=== PATIENT | male | born 1950 | race Caucasian/White ===

== ENCOUNTER 2017-11-12 00:11 | Observation (INO) | payer MEDICARE, BC ==
[2017-11-12] MEDS ORDERED: Sodium Chloride 0.9% 10 ML Syringe FLUSH PRN (00:14)
[2017-11-12] MEDS ORDERED: Aspirin 81 MG Tab.Chew PO ONE (00:18)
--- NOTE | 2017-11-12 00:18 | EDM.PDOC ---
ED HPI GENERAL MEDICAL PROBLEM - General Chief Complaint: Chest Pain Stated Complaint: right sided CP Time Seen by Provider: 11/12/17 01:33 Source of Information: Reports: Patient History Limitations: Reports: No Limitations - History of Present Illness INITIAL COMMENTS - FREE TEXT/NARRATIVE: Patient is a 67-year-old known gentleman with history of kidney disease states that around 10:30 he started having chest pain radiating to the right and down to his right quadrant and around the back and I will what was called patient was picked up and brought over Onset: Sudden Duration: Hour(s): Location: Reports: Chest Quality: Reports: Pressure Severity: Moderate Improves with: Reports: None Worsens with: Reports: None Context: Reports: Other (Chest pain) Associated Symptoms: Reports: No Other Symptoms Right Chest Pain Score (Numeric/FACES): 3 - Related Data Allergies Allergy/AdvReac Type Severity Reaction Status Date / Time antihistimines Allergy Other Uncoded 11/12/17 00:14 Home Meds: Home Meds Aspirin [Lo-Dose Aspirin EC] 81 mg PO DAILY 11/12/17 [History] Carvedilol [Carvedilol] 1 tab PO BID 11/12/17 [History] Diltiazem HCl [Diltiazem 24Hr Cd] 1 tab PO BEDTIME 11/12/17 [History] Folic Acid 1 tab PO DAILY 11/12/17 [History] Lactobac Cmb #3/Fos/Pantethine [Probiotic & Acidophilus] 1 tab PO DAILY [History] Methylphenidate HCl [Methylphenidate ER] 10 mg PO BID 11/12/17 [History] atorvaSTATin [Lipitor] 10 mg PO DAILY 11/12/17 [History] busPIRone HCl [Buspirone HCl] 15 mg PO TID 11/12/17 [History] hydrOXYzine Pamoate [Hydroxyzine Pamoate] 1 cap PO BEDTIME 11/12/17 [History] ED ROS GENERAL - Review of Systems Review Of Systems: See Below Constitutional: Reports: No Symptoms HEENT: Reports: No Symptoms Respiratory: Reports: No Symptoms Cardiovascular: Reports: Chest Pain Endocrine: Reports: No Symptoms GI/Abdominal: Reports: No Symptoms : Reports: Flank Pain Musculoskeletal: Reports: No Symptoms Skin: Reports: No Symptoms Neurological: Reports: No Symptoms Psychiatric: Reports: No Symptoms Hematologic/Lymphatic: Reports: No Symptoms Immunologic: Reports: No Symptoms ED EXAM, GENERAL - Physical Exam Exam: See Below Exam Limited By: No Limitations General Appearance: Alert, WD/WN, No Apparent Distress Ears: Normal External Exam, Normal Canal, Hearing Grossly Normal, Normal TMs Ear Exam: Bilateral Ear: Auricle Normal, Canal Normal, TM normal Nose: Normal Inspection, Normal Mucosa, No Blood Throat/Mouth: Normal Inspection, Normal Lips, Normal Teeth, Normal Gums, Normal Oropharynx, Normal Voice, No Airway Compromise Head: Atraumatic, Normocephalic Neck: Normal Inspection, Supple, Non-Tender, Full Range of Motion Respiratory/Chest: No Respiratory Distress, Lungs Clear, Normal Breath Sounds, No Accessory Muscle Use, Chest Non-Tender Cardiovascular: Normal Peripheral Pulses, Regular Rate, Rhythm, No Edema, No Gallop, No JVD, No Murmur, No Rub GI/Abdominal: Normal Bowel Sounds, Soft, Non-Tender, No Organomegaly, No Distention, No Abnormal Bruit, No Mass (Male) Exam: Deferred Rectal (Males) Exam: Deferred Back Exam: Decreased Range of Motion, Muscle Spasm, Vertebral Tenderness Extremities: Normal Inspection, Normal Range of Motion, Non-Tender, Normal Capillary Refill, No Pedal Edema Neurological: Alert, Oriented, CN II-XII Intact, Normal Cognition, Normal Gait, Normal Reflexes, No Motor/Sensory Deficits Psychiatric: Normal Affect, Normal Mood Skin Exam: Warm, Dry, Intact, Normal Color, No Rash EKG INTERPRETATION EKG Date: 11/12/17 Rhythm: NSR [place]: Normal P-Wave: Present QRS: Normal ST-T: Normal Course - Vital Signs Last Recorded V/S: Last Vital Signs Temp 98.4 F 11/12/17 00:44 Pulse 60 11/12/17 01:17 Resp 11 L 11/12/17 00:44 BP 175/85 H 11/12/17 01:17 Pulse Ox 100 11/12/17 00:44 - Orders/Labs/Meds Orders: Active Orders 24 hr Category Date Time Status EKG Documentation Completion [RC] ASDIRECTED Care 11/12/17 00:16 Active CXR [Chest 2V] [CR] Stat Exams 11/12/17 00:14 Taken Sodium Chloride 0.9% [Saline Flush] Med 11/12/17 00:14 Active 10 ml FLUSH ASDIRECTED PRN Saline Lock Insert [OM.PC] Stat Oth 11/12/17 00:14 Ordered Medication Orders Enoxaparin Sodium (Lovenox) 40 mg SUBCUT DAILY DAYSI Sodium Chloride (Saline Flush) 10 ml FLUSH ASDIRECTED PRN PRN Reason: Keep Vein Open Labs: Laboratory Tests 11/12/17 11/12/17 11/12/17 Range/Units 00:25 00:25 00:25 WBC 6.1 (4.0-10.2) K/uL RBC 4.74 (4.33-5.41) M/uL Hgb 15.0 (13.1-16.8) g/dL Hct 43.8 (39.0-49.0) % MCV 92.4 (84.0-98.0) fL MCH 31.6 (28.2-33.3) pg MCHC 34.2 (31.7-36.0) g/dL RDW 14.5 H (11.2-14.1) % Plt Count 215 (150-350) K/uL Neut % (Auto) 55.3 (45.0-80.0) % Lymph % (Auto) 27.0 (10.0-50.0) % [place] % (Auto) 10.3 (2.0-14.0) % Eos % (Auto) 5.9 H (0.0-5.0) % Baso % (Auto) 1.5 (0.0-2.0) % Neut # (Auto) 3.39 (1.40-7.00) K/uL Lymph # (Auto) 1.65 (0.50-3.50) K/uL [place] # (Auto) 0.63 (0.00-1.00) K/uL Eos # (Auto) 0.36 (0.00-0.50) K/uL Baso # (Auto) 0.09 (0.00-0.20) K/uL Sodium 139 (136-145) mmol/L Potassium 4.0 (3.5-5.1) mmol/L Chloride 102 (98-107) mmol/L Carbon Dioxide 27.0 (21.0-32.0) mmol/L BUN 23 H (7-18) mg/dL Creatinine 1.54 H (0.51-1.17) mg/dL Est Cr Clr Drug Dosing 47.30 mL/min Estimated GFR (MDRD) 45 mL/min Glucose 111 H (74-106) mg/dL Calcium 8.6 (8.5-10.1) mg/dL Troponin I 0.001 (0.000-0.056) ng/mL Meds: Medications Generic Name Dose Route Start Last Admin Trade Name Freq PRN Reason Stop Dose Admin Enoxaparin Sodium 40 mg 11/12/17 08:00 Lovenox SUBCUT DAILY DAYSI Sodium Chloride 10 ml 11/12/17 00:14 Saline Flush FLUSH ASDIRECTED PRN Keep Vein Open Discontinued Medications Generic Name Dose Route Start Last Admin Trade Name Freq PRN Reason Stop Dose Admin Aspirin 324 mg 11/12/17 00:18 11/12/17 00:34 Aspirin PO 11/12/17 00:19 324 mg ONETIME ONE Administration Labetalol HCl 100 mg 11/12/17 01:08 11/12/17 01:17 Normodyne PO 11/12/17 01:09 100 mg ONETIME ONE Administration Metoprolol Tartrate 5 mg 11/12/17 00:28 11/12/17 00:35 Lopressor IVPUSH 11/12/17 00:29 5 mg ONETIME ONE Administration Morphine Sulfate 1 mg 11/12/17 00:42 Morphine IVPUSH 11/12/17 00:43 ONETIME ONE Ondansetron HCl 4 mg 11/12/17 00:23 11/12/17 00:35 Zofran IVPUSH 11/12/17 00:24 4 mg ONETIME ONE Administration Departure - Departure Time of Disposition: 01:41 Disposition: Refer to Observation Condition: Good Clinical Impression: Chest pain at rest - Problem List & Annotations (1) Chest pain at rest SNOMED Code(s): 0885621 Code(s): R07.9 - CHEST PAIN, UNSPECIFIED Status: Acute Current Visit: Yes - Problem List Review Problem List Initiated/Reviewed/Updated: Yes - My Orders Last 24 Hours: My Active Orders 11/12/17 00:14 CXR [Chest 2V] [CR] Stat Sodium Chloride 0.9% [Saline Flush] 10 ml FLUSH ASDIRECTED PRN Saline Lock Insert [OM.PC] Stat 11/12/17 00:16 EKG Documentation Completion [RC] ASDIRECTED - Assessment/Plan Last 24 Hours: My Active Orders 11/12/17 00:14 CXR [Chest 2V] [CR] Stat Sodium Chloride 0.9% [Saline Flush] 10 ml FLUSH ASDIRECTED PRN Saline Lock Insert [OM.PC] Stat 11/12/17 00:16 EKG Documentation Completion [RC] ASDIRECTED Plan: Plan is to admit for observation recheck troponins in the morning repeat EKG if everything is normal we'll send home patient will need a prescription for labetalol 100 mg by mouth 3 times a day for hypertension
[2017-11-12] MEDS ORDERED: Ondansetron 4 MG/2 ML SDV IVPUSH ONE (00:23)
[2017-11-12] MEDS ORDERED: Metoprolol Tartrate 5 MG/5 ML SDV IVPUSH ONE (00:28)
[2017-11-12] MEDS ORDERED: Morphine 2 MG/ML Syringe IVPUSH ONE (00:42)
[2017-11-12] MEDS ORDERED: Labetalol 100 MG Tab PO ONE (01:08)
[2017-11-12] MEDS ORDERED: Ondansetron 4 MG/2 ML SDV IVPUSH STA (06:24)
[2017-11-12] MEDS ORDERED: Carvedilol 6.25 MG Tab PO SCH (08:00)
[2017-11-12] MEDS ORDERED: METHYLPHENIDATE HCL 10 MG PO SCH (08:00)
[2017-11-12] MEDS ORDERED: Folic Acid 1 MG Tab PO SCH (08:00)
[2017-11-12] MEDS ORDERED: Diltiazem 120 MG Cap.CD PO SCH (08:00)
[2017-11-12] MEDS ORDERED: Aspirin 81 MG Tab.EC PO SCH (08:00)
[2017-11-12] MEDS ORDERED: Enoxaparin 40 MG/0.4 ML Syringe SUBCUT SCH (08:00)
[2017-11-12] MEDS ORDERED: Lactobacillus Rhamnosus GG (Probiotic) Cap PO SCH (08:00)
[2017-11-12] MEDS ORDERED: atorvaSTATin 10 MG Tab PO SCH (08:00)
[2017-11-12] MEDS: busPIRone 15 MG Tab PO SCH ×2 (08:12→11:12)
--- NOTE | 2017-11-12 12:22 | PCM.DCSUM1 ---
Discharge Summary - Hospital Course Brief History: Patient admitted to observation overnight for complaint of chest and abdominal pain. - Discharge Data Discharge Date: 11/12/17 Discharge Disposition: Home, Self-Care 01 Condition: Good - Discharge Diagnosis/Problem(s) (1) Chest pain at rest SNOMED Code(s): 6678144 ICD Code: R07.9 - CHEST PAIN, UNSPECIFIED Status: Acute Priority: High Current Visit: Yes Onset Date: 11/11/17 Problem Details: Sudden onset right sided chest pain, radiating to RLQ and around right back. Unremarkable cardiac workup. Improved with passing gas. Patient also has history of GERD. Suspect GI in nature at this time. Pain-free at time of discharge. - Patient Summary/Data Complications: None Hospital Course: Patient remained stable. Became pain-free after passing some gas. Unremarkable Troponins and EKGs/chest xray. Some elevations in BP noted periodically, but overall vital signs stable. - Patient Instructions Diet: Heart Healthy Diet Activity: As Tolerated Driving: May Drive Today Showering/Bathing: May Shower Notify Provider of: Increased Pain Other/Special Instructions: Call your primary provider and tell them that you were admitted overnight for evaluation of chest pain. Consider having stress testing performed to more fully rule out the possibility of cardiac involvement. Follow up otherwise as needed if pain redevelops or you start having additional problems. Also, review your blood pressure trends and see if any adjustments in medication are needed. - Discharge Plan Home Medications: Home Meds Aspirin [Lo-Dose Aspirin EC] 81 mg PO DAILY 11/12/17 [History] Carvedilol 1 tab PO BID 11/12/17 [History] Diltiazem HCl [Diltiazem 24Hr Cd] 1 tab PO BEDTIME 11/12/17 [History] Folic Acid 1 tab PO DAILY 11/12/17 [History] Lactobac Cmb #3/Fos/Pantethine [Probiotic & Acidophilus] 1 tab PO DAILY [History] Methylphenidate HCl [Methylphenidate ER] 10 mg PO BID 11/12/17 [History] atorvaSTATin [Lipitor] 10 mg PO DAILY 11/12/17 [History] busPIRone HCl [Buspirone HCl] 15 mg PO TID 11/12/17 [History] hydrOXYzine Pamoate [Hydroxyzine Pamoate] 1 cap PO BEDTIME 11/12/17 [History] Patient Handouts: Chest Pain Observation Forms: ED Department Discharge Referrals: PCP,Unknown [Primary Care Provider] - - Discharge Summary/Plan Comment DC Time >30 min.: Yes - General Info Date of Service: 11/12/17 Admission Dx/Problem (Free Text: Admitted for observation, serial EKGs/Troponins for chest pain complaint. Subjective Update: Feels normal. Pain-free at this time. Functional Status: Reports: Pain Controlled, Tolerating Diet, Ambulating, Urinating. Denies: New Symptoms - Review of Systems General: Reports: No Symptoms HEENT: Reports: Glasses Pulmonary: Reports: No Symptoms Cardiovascular: Reports: No Symptoms Gastrointestinal: Reports: No Symptoms Genitourinary: Reports: No Symptoms Musculoskeletal: Reports: No Symptoms (no acute changes) Skin: Reports: No Symptoms Neurological: Reports: No Symptoms Psychiatric: Reports: No Symptoms - Patient Data Vitals - Most Recent: Last Vital Signs Temp 36.6 C 11/12/17 07:22 Pulse 64 11/12/17 07:22 Resp 15 11/12/17 07:22 BP 144/78 H 11/12/17 08:11 Pulse Ox 96 11/12/17 07:22 Weight - Most Recent: 95.254 kg I&O - Last 24 hours: Intake & Output 11/11/17 11/12/17 11/12/17 22:59 06:59 14:59 Intake Total 550 Balance 550 Lab Results - Last 24 hrs: Laboratory Results - last 24 hr 11/12/17 11/12/17 11/12/17 Range/Units 07:30 07:30 07:30 WBC 7.8 (4.0-10.2) K/uL RBC 4.86 (4.33-5.41) M/uL Hgb 15.5 (13.1-16.8) g/dL Hct 44.7 (39.0-49.0) % MCV 92.0 (84.0-98.0) fL MCH 31.9 (28.2-33.3) pg MCHC 34.7 (31.7-36.0) g/dL RDW 14.5 H (11.2-14.1) % Plt Count 215 (150-350) K/uL Neut % (Auto) 65.3 (45.0-80.0) % Lymph % (Auto) 21.8 (10.0-50.0) % [place] % (Auto) 9.1 (2.0-14.0) % Eos % (Auto) 3.2 (0.0-5.0) % Baso % (Auto) 0.6 (0.0-2.0) % Neut # (Auto) 5.10 (1.40-7.00) K/uL Lymph # (Auto) 1.70 (0.50-3.50) K/uL [place] # (Auto) 0.71 (0.00-1.00) K/uL Eos # (Auto) 0.25 (0.00-0.50) K/uL Baso # (Auto) 0.05 (0.00-0.20) K/uL Sodium 139 (136-145) mmol/L Potassium 3.7 (3.5-5.1) mmol/L Chloride 103 (98-107) mmol/L Carbon Dioxide 25.6 (21.0-32.0) mmol/L BUN 17 (7-18) mg/dL Creatinine 1.38 H (0.51-1.17) mg/dL Est Cr Clr Drug Dosing 53.10 mL/min Estimated GFR (MDRD) 51 mL/min Glucose 119 H (74-106) mg/dL Calcium 8.6 (8.5-10.1) mg/dL Troponin I 0.003 (0.000-0.056) ng/mL Med Orders - Current: Current Medications Aspirin (Halfprin) 81 mg PO DAILY [facility] Last Admin: 11/12/17 08:11 Dose: 81 mg Atorvastatin Calcium (Lipitor) 10 mg PO DAILY [facility] Last Admin: 11/12/17 08:12 Dose: 10 mg Buspirone HCl (Buspar) 15 mg PO TID [facility] Last Admin: 11/12/17 11:12 Dose: 15 mg Carvedilol (Coreg) 6.25 mg PO BID [facility] Last Admin: 11/12/17 08:11 Dose: 6.25 mg Diltiazem HCl (Cardizem Cd) 240 mg PO DAILY [facility] Last Admin: 11/12/17 08:10 Dose: Not Given Enoxaparin Sodium (Lovenox) 40 mg SUBCUT DAILY [facility] Last Admin: 11/12/17 08:12 Dose: 40 mg Folic Acid (Folic Acid) 1 mg PO DAILY [facility] Last Admin: 11/12/17 08:11 Dose: 1 mg Hydroxyzine Pamoate (Vistaril) 25 mg PO BEDTIME [facility] Lactobacillus Rhamnosus (Culturelle) 1 cap PO DAILY [facility] Last Admin: 11/12/17 08:12 Dose: 1 cap Non-Formulary Medication (Methylphenidate Hcl [Methylphenidate Er]) 10 mg PO BID [facility] Sodium Chloride (Saline Flush) 10 ml FLUSH ASDIRECTED PRN PRN Reason: Keep Vein Open Last Admin: 11/12/17 08:12 Dose: 10 ml Discontinued Medications Aspirin (Aspirin) 324 mg PO ONETIME ONE Stop: 11/12/17 00:19 Last Admin: 11/12/17 00:34 Dose: 324 mg Labetalol HCl (Normodyne) 100 mg PO ONETIME ONE Stop: 11/12/17 01:09 Last Admin: 11/12/17 01:17 Dose: 100 mg Metoprolol Tartrate (Lopressor) 5 mg IVPUSH ONETIME ONE Stop: 11/12/17 00:29 Last Admin: 11/12/17 00:35 Dose: 5 mg Morphine Sulfate (Morphine) 1 mg IVPUSH ONETIME ONE Stop: 11/12/17 00:43 Last Admin: 11/12/17 02:53 Dose: Not Given Ondansetron HCl (Zofran) 4 mg IVPUSH ONETIME ONE Stop: 11/12/17 00:24 Last Admin: 11/12/17 00:35 Dose: 4 mg Ondansetron HCl (Zofran) 4 mg IVPUSH ONETIME STA Stop: 11/12/17 06:25 Last Admin: 11/12/17 07:06 Dose: 4 mg - Exam General: Reports: Alert, Oriented, Cooperative, No Acute Distress HEENT: Reports: Pupils Equal, Pupils Reactive, Mucous Membr. Moist/[place] Neck: Reports: Supple Lungs: Reports: Clear to Auscultation, Normal Respiratory Effort GI/Abdominal Exam: Normal Bowel Sounds, Soft, Non-Tender, No Distention, No Mass (Male) Exam: Deferred Rectal (Males) Exam: Deferred Back Exam: Reports: Normal Inspection Extremities: Normal Inspection, Normal Range of Motion, Non-Tender, Normal Capillary Refill Skin: Reports: Warm, Dry, Intact Neurological: Reports: No New Focal Deficit Psy/Mental Status: Reports: Alert, Normal Affect, Normal Mood EKG INTERPRETATION EKG Date: 11/12/17 Time: 07:57 Rhythm: NSR Rate (Beats/Min): 60 [place]: Normal P-Wave: Present QRS: Normal ST-T: Normal QT: Prolonged Comparison: Change From Previous EKG (today MI interval is longer, 244ms instead of 204ms. Otherwise no change.) *Q Meaningful Use (DIS) - VTE *Q VTE Criteria *Q: - Stroke *Q Stroke Criteria *Q: - AMI *Q AMI Criteria *Q:
[2017-11-12] MEDS ORDERED: hydrOXYzine Pamoate 25 MG Cap PO SCH (20:00)
== END 2017-11-12 12:55 | disposition home or self-care (01) ==
LOC: LL.ED 00:11 → LL.MS 01:33
PROVIDERS: ADMIT Family Medicine; ATTEND Emergency Medicine
DX: R07.9 Chest pain, unspecified (principal); K21.9 Gastro-esophageal reflux disease without esophagitis; I10 Essential (primary) hypertension; Z79.82 Long term (current) use of aspirin; Z79.899 Other long term (current) drug therapy; Z88.8 Allergy status to other drugs, medicaments and biological substances
CPT/HCPCS: 36415; 71046; 80048; 84484; 85025; 93005; 96372; 96374; 96375; 96376; 99285; A9270; G0378; J1650; J2405; J7050; 99234; J3490

== ENCOUNTER 2018-01-06 17:24 | Emergency (ER) | payer MEDICARE, BC ==
[2018-01-06 18:07] LABS: CHLORIDE,CL 104 mmol/L (98-107); SODIUM,NA 140 mmol/L (136-145)
--- NOTE | 2018-01-06 18:21 | EDM.PDOC ---
ED HPI GENERAL MEDICAL PROBLEM - General Chief Complaint: Abdominal Pain Stated Complaint: 'knot in belly' Time Seen by Provider: 01/06/18 17:24 Source of Information: Reports: Patient History Limitations: Reports: No Limitations - History of Present Illness INITIAL COMMENTS - FREE TEXT/NARRATIVE: Patient is a 67-year-old well known to myself seeing today with chief complaint of epigastric gastric discomfort he states that he had lunch that when outside chipped some ice wasn't feeling too good went inside to the nap and then woke up with epigastric pain radiating to the side this happened to him about 3 or 4 times recently and at this point he decided to come in for evaluation Onset: Today, Sudden Duration: Hour(s): Location: Reports: Abdomen Quality: Reports: Ache, Pressure Improves with: Reports: Rest Worsens with: Reports: None Abdominal Pain Score (Numeric/FACES): 5 - Related Data Allergies Allergy/AdvReac Type Severity Reaction Status Date / Time antihistimines Allergy Other Uncoded 01/06/18 17:26 Home Meds: Home Meds Aspirin [Lo-Dose Aspirin EC] 81 mg PO DAILY 11/12/17 [History] Carvedilol 1 tab PO BID 11/12/17 [History] Diltiazem HCl [Diltiazem 24Hr Cd] 1 tab PO BEDTIME 11/12/17 [History] Folic Acid 1 tab PO DAILY 11/12/17 [History] Lactobac Cmb #3/Fos/Pantethine [Probiotic & Acidophilus] 1 tab PO DAILY [History] Methylphenidate HCl [Methylphenidate ER] 10 mg PO BID PRN 11/12/17 [History] atorvaSTATin [Lipitor] 10 mg PO DAILY 11/12/17 [History] busPIRone HCl [Buspirone HCl] 15 mg PO TID 11/12/17 [History] hydrOXYzine Pamoate [Hydroxyzine Pamoate] 1 cap PO BEDTIME 11/12/17 [History] Ubidecarenone/Vitamin E [Co Q-10 50 MG Softgel] 1 caplet PO DAILY 01/06/18 [ History] Past Medical History HEENT History: Reports: Allergic Rhinitis, Cataract, Glaucoma, Impaired Vision, Sinusitis Cardiovascular History: Reports: High Cholesterol, Hypertension Respiratory History: Reports: Asthma Gastrointestinal History: Reports: GERD Genitourinary History: Reports: Other (See Below) Other Genitourinary History: CKD Musculoskeletal History: Reports: Arthritis, Osteoarthritis Other Musculoskeletal History: bilateral clavical fx, 6 rib fx, collapsed t7, cracked process off of c7 Neurological History: Reports: Concussion Psychiatric History: Reports: ADD, Anxiety Dermatologic History: Reports: Psoriasis - Past Surgical History HEENT Surgical History: Reports: Tonsillectomy, Other (See Below) Other HEENT Surgeries/Procedures: retnial repair GI Surgical History: Reports: Colonoscopy Male Surgical History: Reports: Vasectomy Social & Family History - Tobacco Use Smoking Status *Q: Never Smoker - Caffeine Use Caffeine Use: Reports: Coffee, Energy Drinks, Soda, Tea - Recreational Drug Use Recreational Drug Use: No ED ROS GENERAL - Review of Systems Review Of Systems: See Below Constitutional: Reports: No Symptoms HEENT: Reports: No Symptoms Respiratory: Reports: No Symptoms Cardiovascular: Reports: No Symptoms Endocrine: Reports: No Symptoms GI/Abdominal: Reports: Abdominal Pain : Reports: No Symptoms Musculoskeletal: Reports: No Symptoms Skin: Reports: No Symptoms Neurological: Reports: No Symptoms Psychiatric: Reports: No Symptoms Hematologic/Lymphatic: Reports: No Symptoms Immunologic: Reports: No Symptoms ED EXAM, GI/ABD - Physical Exam Exam: See Below Exam Limited By: No Limitations General Appearance: Alert, WD/WN, No Apparent Distress Eyes: Bilateral: Normal Appearance, EOMI Ears: Normal External Exam, Normal Canal, Hearing Grossly Normal, Normal TMs Nose: Normal Inspection, Normal Mucosa, No Blood Throat/Mouth: Normal Inspection, Normal Lips, Normal Teeth, Normal Gums, Normal Oropharynx, Normal Voice, No Airway Compromise Head: Atraumatic, Normocephalic Neck: Normal Inspection, Supple, Non-Tender, Full Range of Motion Respiratory/Chest: No Respiratory Distress, Lungs Clear, Normal Breath Sounds, No Accessory Muscle Use, Chest Non-Tender Cardiovascular: Normal Peripheral Pulses, Regular Rate, Rhythm, No Edema, No Gallop, No JVD, No Murmur, No Rub GI/Abdominal Exam: Normal Bowel Sounds, No Mass, Tender (Male) Exam: Deferred Rectal (Males) Exam: Deferred Back Exam: Normal Inspection, Full Range of Motion, NT Extremities: Normal Inspection, Normal Range of Motion, Non-Tender, Normal Capillary Refill, No Pedal Edema Neurological: Alert, Oriented, CN II-XII Intact, Normal Cognition, Normal Gait, Normal Reflexes, No Motor/Sensory Deficits Psychiatric: Normal Affect, Normal Mood Skin Exam: Warm, Dry, Intact, Normal Color, No Rash Course - Vital Signs Last Recorded V/S: Last Vital Signs Temp Pulse 65 01/06/18 21:35 Resp 18 01/06/18 21:35 BP 161/74 H 01/06/18 21:35 Pulse Ox 98 01/06/18 19:00 - Orders/Labs/Meds Orders: Active Orders 24 hr Category Date Time Status Ready for Discharge [RC] PER UNIT ROUTINE Care 01/06/18 21:34 Active Ready for Discharge [RC] PER UNIT ROUTINE Care 01/06/18 21:54 Active Abdomen 2V AP Flat Upright [CR] Stat Exams 01/06/18 17:26 Taken Abdomen Pelvis w Cont [CT] Stat Exams 01/06/18 18:30 Taken Saline Lock Insert [OM.PC] Stat Oth 01/06/18 19:13 Ordered Labs: Laboratory Tests 01/06/18 01/06/18 01/06/18 Range/Units 17:50 17:50 18:37 WBC 6.5 (4.0-10.2) K/uL RBC 4.44 (4.33-5.41) M/uL Hgb 13.9 D (13.1-16.8) g/dL Hct 41.4 (39.0-49.0) % MCV 93.2 (84.0-98.0) fL MCH 31.3 (28.2-33.3) pg MCHC 33.6 (31.7-36.0) g/dL RDW 13.6 (11.2-14.1) % Plt Count 385 H D (150-350) K/uL Neut % (Auto) 66.7 (45.0-80.0) % Lymph % (Auto) 18.6 (10.0-50.0) % [place] % (Auto) 11.5 (2.0-14.0) % Eos % (Auto) 2.6 (0.0-5.0) % Baso % (Auto) 0.6 (0.0-2.0) % Neut # (Auto) 4.34 (1.40-7.00) K/uL Lymph # (Auto) 1.21 (0.50-3.50) K/uL [place] # (Auto) 0.75 (0.00-1.00) K/uL Eos # (Auto) 0.17 (0.00-0.50) K/uL Baso # (Auto) 0.04 (0.00-0.20) K/uL Sodium 140 (136-145) mmol/L Potassium 4.4 (3.5-5.1) mmol/L Chloride 104 (98-107) mmol/L Carbon Dioxide 28.1 (21.0-32.0) mmol/L BUN 20 H (7-18) mg/dL Creatinine 1.44 H (0.51-1.17) mg/dL Est Cr Clr Drug Dosing TNP Estimated GFR (MDRD) 49 mL/min Glucose 126 H (74-106) mg/dL Calcium 8.4 L (8.5-10.1) mg/dL Specimen Type Urincc Urine Color Yellow Urine Appearance Clear Urine pH 5.5 (5.0-9.0) Ur Specific [place] <= 1.005 (1.005-1.030) Urine Protein Negative (NEGATIVE) mg/dL Urine Glucose (UA) Negative (NEGATIVE) mg/dL Urine Ketones Negative (NEGATIVE) mg/dL Urine Occult Blood Negative (NEGATIVE) Urine Nitrite Negative (NEGATIVE) Urine Bilirubin Negative (NEGATIVE) Urine Urobilinogen 0.2 (0.2-1.0) E.U./dL Ur Leukocyte Esterase Negative (NEGATIVE) Urine RBC 0-5 /HPF Urine WBC Not seen /HPF Ur Epithelial Cells Rare /LPF Urine Bacteria Rare (NONE TO FEW) /HPF Meds: Medications Discontinued Medications Generic Name Dose Route Start Last Admin Trade Name Freq PRN Reason Stop Dose Admin Hydrocodone Bitart/Acetaminophen 1 tab 01/06/18 21:53 01/06/18 22:01 [place] 325-5 Mg PO 01/06/18 21:54 1 tab ONETIME ONE Administration Sodium Chloride 1,000 mls @ 250 mls/hr 01/06/18 19:15 01/06/18 19:15 Normal Saline IV 250 mls/hr ASDIRECTED DAYSI Administration Iopamidol 100 ml 01/06/18 19:50 01/06/18 20:02 Isovue-300 (61%) IVPUSH 01/06/18 19:51 100 ml ONETIME ONE Administration Sodium Chloride 10 ml 01/06/18 19:12 Saline Flush FLUSH ASDIRECTED PRN Keep Vein Open Departure - Departure Time of Disposition: 21:31 Disposition: Home, Self-Care 01 Condition: Good Clinical Impression: Cholecystitis - Discharge Information Instructions: Acetaminophen; Hydrocodone tablets or capsules, Cholelithiasis, [id number], Cholangitis, Low-Fat Diet for Pancreatitis or Gallbladder Conditions Referrals: Gee Santana MD [Primary Care Provider] - Oscar Hdz MD [Ordering Only Provider] - Forms: ED Department Discharge Care Plan Goals: Patient will be sent home he is currently asymptomatic on a low-fat diet he is to see Dr. Hdz was his primary physician for follow-up and referral to surgeon we will send labs and CT report to primary - My Orders Last 24 Hours: My Active Orders 01/06/18 17:26 Abdomen 2V AP Flat Upright [CR] Stat 01/06/18 18:30 Abdomen Pelvis w Cont [CT] Stat 01/06/18 19:13 Saline Lock Insert [OM.PC] Stat 01/06/18 21:34 Ready for Discharge [RC] PER UNIT ROUTINE 01/06/18 21:54 Ready for Discharge [RC] PER UNIT ROUTINE - Assessment/Plan Last 24 Hours: My Active Orders 01/06/18 17:26 Abdomen 2V AP Flat Upright [CR] Stat 01/06/18 18:30 Abdomen Pelvis w Cont [CT] Stat 01/06/18 19:13 Saline Lock Insert [OM.PC] Stat 01/06/18 21:34 Ready for Discharge [RC] PER UNIT ROUTINE 01/06/18 21:54 Ready for Discharge [RC] PER UNIT ROUTINE
[2018-01-06] MEDS ORDERED: Sodium Chloride 0.9% 10 ML Syringe FLUSH PRN (19:12)
[2018-01-06] MEDS: Sodium Chloride 0.9% 1,000 ML IV SCH (19:15)
[2018-01-06] MEDS: Iopamidol 612 MG/ML 100 ML Bottle IVPUSH ONE (20:02)
[2018-01-06] MEDS: Acetaminophen/HYDROcodone 325-5 MG Tab PO ONE (22:01)
== END 2018-01-06 21:50 | disposition home or self-care (01) ==
LOC: LL.ED 17:24
DX: K81.9 Cholecystitis, unspecified (principal); E78.00 Pure hypercholesterolemia, unspecified; I12.9 Hypertensive chronic kidney disease with stage 1 through stage 4 chronic kidney disease, or unspecified chronic kidney disease; N18.9 Chronic kidney disease, unspecified; K21.9 Gastro-esophageal reflux disease without esophagitis; F41.9 Anxiety disorder, unspecified; Z79.82 Long term (current) use of aspirin; Z79.899 Other long term (current) drug therapy; Z88.8 Allergy status to other drugs, medicaments and biological substances
CPT/HCPCS: 36415; 74019; 74177; 80048; 81001; 85025; 96360; 96361; 99285; A9270-GY; J7030; Q9967

== ENCOUNTER 2019-03-07 22:04 | Emergency (ER) | payer MEDICARE, BC ==
--- NOTE | 2019-03-07 23:00 | EDM.PDOC ---
ED HPI GENERAL MEDICAL PROBLEM - General Chief Complaint: Cardiovascular Problem Stated Complaint: feeling like in afib again, 'extra heart beat' Time Seen by Provider: 03/07/19 22:10 Source of Information: Reports: Patient History Limitations: Reports: No Limitations - History of Present Illness Onset: Today Duration: Hour(s):, Constant Location: Reports: Chest Quality: Reports: Same as Previous Episode Severity: Moderate Improves with: Reports: None Worsens with: Reports: None - Related Data Allergies Allergy/AdvReac Type Severity Reaction Status Date / Time antihistimines Allergy Other Uncoded 03/07/19 22:32 Home Meds: Home Meds Aspirin [Lo-Dose Aspirin EC] 81 mg PO DAILY 11/12/17 [History] Carvedilol 1 tab PO BID 11/12/17 [History] Diltiazem HCl [Diltiazem 24Hr Cd] 1 tab PO BEDTIME 11/12/17 [History] Folic Acid 1 tab PO DAILY 11/12/17 [History] Lactobac Cmb #3/Fos/Pantethine [Probiotic & Acidophilus] 1 tab PO DAILY [History] atorvaSTATin [Lipitor] 10 mg PO DAILY 11/12/17 [History] busPIRone HCl [Buspirone HCl] 15 mg PO TID 11/12/17 [History] hydrOXYzine pamoate [Hydroxyzine Pamoate] 1 cap PO BEDTIME 11/12/17 [History] Ubidecarenone/Vitamin E [Co Q-10 50 MG Softgel] 1 caplet PO DAILY 01/06/18 [ History] Cholecalciferol (Vitamin D3) [Vitamin D3] 2,000 unit PO DAILY 03/07/19 [History] Past Medical History HEENT History: Reports: Allergic Rhinitis, Cataract, Glaucoma, Impaired Vision, Sinusitis Cardiovascular History: Reports: High Cholesterol, Hypertension Respiratory History: Reports: Asthma Gastrointestinal History: Reports: GERD Genitourinary History: Reports: Other (See Below) Other Genitourinary History: CKD Musculoskeletal History: Reports: Arthritis, Osteoarthritis Other Musculoskeletal History: bilateral clavical fx, 6 rib fx, collapsed t7, cracked process off of c7 Neurological History: Reports: Concussion Psychiatric History: Reports: ADD, Anxiety Dermatologic History: Reports: Psoriasis - Past Surgical History HEENT Surgical History: Reports: Tonsillectomy, Other (See Below) Other HEENT Surgeries/Procedures: retnial repair GI Surgical History: Reports: Colonoscopy Male Surgical History: Reports: Vasectomy Social & Family History - Caffeine Use Caffeine Use: Reports: Coffee, Energy Drinks, Soda, Tea ED ROS GENERAL - Review of Systems Review Of Systems: See Below Constitutional: Reports: No Symptoms HEENT: Reports: No Symptoms Respiratory: Reports: No Symptoms Cardiovascular: Reports: No Symptoms Endocrine: Reports: No Symptoms GI/Abdominal: Reports: No Symptoms : Reports: No Symptoms Musculoskeletal: Reports: No Symptoms Skin: Reports: No Symptoms Neurological: Reports: No Symptoms Psychiatric: Reports: No Symptoms Hematologic/Lymphatic: Reports: No Symptoms Immunologic: Reports: No Symptoms ED EXAM, GENERAL - Physical Exam Exam: See Below Exam Limited By: No Limitations General Appearance: Alert, WD/WN, No Apparent Distress Ears: Normal External Exam, Normal Canal, Hearing Grossly Normal, Normal TMs Ear Exam: Bilateral Ear: Auricle Normal, Canal Normal, TM normal Nose: Normal Inspection, Normal Mucosa, No Blood Throat/Mouth: Normal Inspection, Normal Lips, Normal Teeth, Normal Gums, Normal Oropharynx, Normal Voice, No Airway Compromise Head: Atraumatic, Normocephalic Neck: Normal Inspection, Supple, Non-Tender, Full Range of Motion Respiratory/Chest: No Respiratory Distress, Lungs Clear, Normal Breath Sounds, No Accessory Muscle Use, Chest Non-Tender Cardiovascular: Irregularly Irregular GI/Abdominal: Normal Bowel Sounds, Soft, Non-Tender, No Organomegaly, No Distention, No Abnormal Bruit, No Mass (Male) Exam: Deferred Rectal (Males) Exam: Deferred Back Exam: Normal Inspection, Full Range of Motion, NT Extremities: Normal Inspection, Normal Range of Motion, Non-Tender, Normal Capillary Refill, No Pedal Edema Neurological: Alert Psychiatric: Normal Affect, Normal Mood Skin Exam: Warm, Dry, Intact, Normal Color, No Rash Course - Orders/Labs/Meds Orders: Active Orders 24 hr Category Date Time Status EKG Documentation Completion [RC] ASDIRECTED Care 03/07/19 22:12 Active Departure - Departure Time of Disposition: 23:04 Disposition: Home, Self-Care 01 Condition: Fair Clinical Impression: Atrial fib/flutter, transient Care Plan Goals: At this time patient will be sent home continue taking medications I will refer him to Dr. fatima sr. logistics analyst [facility] cardiovascular clinic patients scored a Olman score 1 which is moderate he should be taking an aspirin a day he should call [facility] [phone] and asked for cardiology clinic referred by Dr. Santana and Dr. Fatima for Sunday or Sunday if unable to get in he should call my clinic for assistance at this time patient is Olman score 2 I explained that the risks of stroke is about 2.8-2.9 and that we should start anticoagulation patient states that he would like to wait for cardiology. - My Orders Last 24 Hours: My Active Orders 03/07/19 22:12 EKG Documentation Completion [RC] ASDIRECTED - Assessment/Plan Last 24 Hours: My Active Orders 03/07/19 22:12 EKG Documentation Completion [RC] ASDIRECTED
== END 2019-03-07 23:26 | disposition home or self-care (01) ==
LOC: LL.ED 22:04 → SUPCPDRO 22:04 → LL.ED 23:26
DX: I48.92 Unspecified atrial flutter (principal); I48.91 Unspecified atrial fibrillation; I12.9 Hypertensive chronic kidney disease with stage 1 through stage 4 chronic kidney disease, or unspecified chronic kidney disease; N18.9 Chronic kidney disease, unspecified; E78.00 Pure hypercholesterolemia, unspecified; J45.909 Unspecified asthma, uncomplicated; K21.9 Gastro-esophageal reflux disease without esophagitis; F41.9 Anxiety disorder, unspecified; Z79.82 Long term (current) use of aspirin; Z79.899 Other long term (current) drug therapy; Z88.8 Allergy status to other drugs, medicaments and biological substances
CPT/HCPCS: 93005; 99285-25

== ENCOUNTER 2020-04-09 21:48 | Emergency (ER) | payer MEDICARE, BC ==
[2020-04-09] MEDS: Tetracaine HCl/PF 0.5% 4 ML Bottle EYERT ONE (22:12)
--- NOTE | 2020-04-09 22:40 | EDM.PDOC ---
ED HPI GENERAL MEDICAL PROBLEM - General Chief Complaint: Eye Problems Stated Complaint: foreign body in eye Time Seen by Provider: 04/09/20 22:33 Source of Information: Reports: Patient, RN Notes Reviewed History Limitations: Reports: No Limitations - History of Present Illness INITIAL COMMENTS - FREE TEXT/NARRATIVE: Right eye FB sensation worsening over 5 hours after low speed grinding of aluminum. Now photophobic. No globe pain. No direct blow trauma. Hx of same without sequelae. No other complaints. Onset: Today Duration: Hour(s): (5) Right Eye Pain Score (Numeric/FACES): 1 - Related Data Allergies Allergy/AdvReac Type Severity Reaction Status Date / Time antihistimines Allergy Other Uncoded 04/09/20 21:49 Home Meds: Home Meds Folic Acid 1 tab PO DAILY 11/12/17 [History] Lactobacillus 3/Fos/Pantethine [Probiotic & Acidophilus] 1 tab PO DAILY [History] atorvaSTATin [Lipitor] 10 mg PO DAILY 11/12/17 [History] busPIRone HCl [Buspirone HCl] 15 mg PO BID 11/12/17 [History] carvediloL [Carvedilol] 0.5 tab PO BID 11/12/17 [History] dilTIAZem HCL [Diltiazem 24Hr ER (Cd)] 1 tab PO ASDIRECTED 11/12/17 [History] hydrOXYzine pamoate [Hydroxyzine Pamoate] 1 cap PO BEDTIME PRN 11/12/17 [History ] Cholecalciferol (Vitamin D3) [Vitamin D3] 2,000 unit PO DAILY 03/07/19 [History] Apixaban [Eliquis] 5 mg PO BID 04/09/20 [History] Biotin 3,000 mcg PO DAILY 04/09/20 [History] Past Medical History HEENT History: Reports: Allergic Rhinitis, Cataract, Glaucoma, Impaired Vision, Sinusitis Cardiovascular History: Reports: High Cholesterol, Hypertension Respiratory History: Reports: Asthma Gastrointestinal History: Reports: GERD Genitourinary History: Reports: Other (See Below) Other Genitourinary History: CKD Musculoskeletal History: Reports: Arthritis, Osteoarthritis Other Musculoskeletal History: bilateral clavical fx, 6 rib fx, collapsed t7, cracked process off of c7 Neurological History: Reports: Concussion Psychiatric History: Reports: ADD, Anxiety Dermatologic History: Reports: Psoriasis - Past Surgical History HEENT Surgical History: Reports: Tonsillectomy, Other (See Below) Other HEENT Surgeries/Procedures: retnial repair GI Surgical History: Reports: Colonoscopy Male Surgical History: Reports: Vasectomy Social & Family History - Tobacco Use Smoking Status *Q: Never Smoker Second Hand Smoke Exposure: No - Caffeine Use Caffeine Use: Reports: Coffee, Energy Drinks, Soda, Tea - Alcohol Use Days Per Week of Alcohol Use: 7 Number of Drinks Per Day: 1 Total Drinks Per Week: 7 - Recreational Drug Use Recreational Drug Use: No ED ROS GENERAL - Review of Systems Review Of Systems: See Below Constitutional: Reports: No Symptoms. Denies: Fever HEENT: Reports: Eye Pain. Denies: Ear Pain, Nose Pain, Throat Pain Respiratory: Denies: Shortness of Breath Cardiovascular: Denies: Chest Pain GI/Abdominal: Denies: Nausea, Vomiting Skin: Denies: Pallor, Rash ED EXAM GENERAL W FULL EYE - Physical Exam Exam: See Below Exam Limited By: No Limitations General Appearance: Alert, Anxious, Mild Distress Eye Exam: Left Eye: Conjunctival Injection, Corneal Abrasion, Foreign Body, Bilateral Eye: Normal Fundi, PERRL, Other (Photophobic) Visual Acuity (R) 20/: 20 Visual Acuity (L) 20/: 20 Eyelids: Left: Foreign Body (4:30 position far distal), Lid Everted for Exam ( No findings), Bilateral: Normal Appearance Cornea Exam: Left: Examined with Flourescein (Tetracaine + flourescein with UV exam showing FB/corneal abrasion. Removed with sterile moist cotton applicator. ) Pupils: Normal Accommodation Pupillary Size: Bilateral: 3 mm Anterior Chamber: Bilateral: Normal Appearance Nose: Normal Mucosa Throat/Mouth: Normal Inspection, Normal Lips, Normal Oropharynx Neck: No: Lymphadenopathy (L), Lymphadenopathy (R) Respiratory/Chest: No Respiratory Distress, Normal Breath Sounds Cardiovascular: Normal Peripheral Pulses, No Edema Extremities: No: Slow Capillary Refill Neurological: Alert, Oriented, CN II-XII Intact Psychiatric: Normal Affect Skin Exam: Warm, Dry, Intact, Normal Color, No Rash ED EYE w/ Add Procedure - Eye Procedure Alcaine Drops Administered: Yes (Tetracaine) Eye FB Removal: Removal w/ Cotton Swab Antibiotic Oinment/Drps Admin: Both Eyes Course - Vital Signs Last Recorded V/S: Last Vital Signs Temp 97.6 F 04/09/20 21:56 Pulse 65 04/09/20 21:56 Resp 14 04/09/20 21:56 BP 134/83 04/09/20 21:56 Pulse Ox 100 04/09/20 21:56 - Orders/Labs/Meds Meds: Medications Discontinued Medications Generic Name Dose Route Start Last Admin Trade Name Freq PRN Reason Stop Dose Admin Tetracaine HCl 2 ml 04/09/20 22:04 04/09/20 22:12 Tetracaine 0.5% Steri-Unit Angel EYERT 04/09/20 22:05 2 drop ONETIME ONE Administration Departure - Departure Time of Disposition: 22:46 Disposition: Home, Self-Care 01 Condition: Good Clinical Impression: Corneal abrasion, Foreign body, eye - Discharge Information *PRESCRIPTION DRUG MONITORING PROGRAM REVIEWED*: Not Applicable *COPY OF PRESCRIPTION DRUG MONITORING REPORT IN PATIENT CHIARA: Not Applicable Instructions: Eye Foreign Body, [id number] Forms: ED Department Discharge Additional Instructions: Polymyxin B Ophthalmological angel 2 gtt OS QID x 5 days. Sepsis Event Note (ED) - Evaluation Sepsis Screening Result: No Definite Risk - Focused Exam Vital Signs: Vital Signs Temp Pulse Resp BP Pulse Ox 04/09/20 21:56 97.6 F 65 14 134/83 100
== END 2020-04-09 22:40 | disposition home or self-care (01) ==
LOC: LL.ED 21:48
DX: T15.01XA Foreign body in cornea, right eye, initial encounter (principal); E78.00 Pure hypercholesterolemia, unspecified; J45.909 Unspecified asthma, uncomplicated; I12.9 Hypertensive chronic kidney disease with stage 1 through stage 4 chronic kidney disease, or unspecified chronic kidney disease; N18.9 Chronic kidney disease, unspecified; F41.9 Anxiety disorder, unspecified; Z79.01 Long term (current) use of anticoagulants; Z79.899 Other long term (current) drug therapy; Z88.8 Allergy status to other drugs, medicaments and biological substances
CPT/HCPCS: 65220; 99283